=== PATIENT | male | born 1955 | race Caucasian/White ===

== ENCOUNTER 2016-08-08 00:32 | Emergency (ER) | payer BC ==
[~2016-08-08] VITALS: Ht 182.9 cm; Wt 134.3 kg
[2016-08-08] MEDS ORDERED: PERCOCET 5/31 TABLET PO (02:04)
[2016-08-08 02:43] VITALS: BP 162/95
== END 2016-08-08 02:44 | disposition home or self-care (01) ==
LOC: EDBD 00:32 → EME 00:32
PROC: 2W3RX1Z Immobilization of Left Lower Leg using Splint (ICD-10-PCS; principal; 2016-08-08)
DX: S52.552A Other extraarticular fracture of lower end of left radius, initial encounter for closed fracture (principal); W01.0XXA Fall on same level from slipping, tripping and stumbling without subsequent striking against object, initial encounter
CPT/HCPCS: 73110; 73130